=== PATIENT | female | born 1955 | race African-American/Black ===

== ENCOUNTER → 2017-12-20 | Outpatient (CLI) | payer SELFPAY ==
[~2017-12-20] MED LIST: CLON0.5T PO; IBUP-232 PO; LEVO75TA3 PO; METR0.7512 VAGINAL; TRIAM.1%T TOPICAL; ZOSTINJ SQ
--- NOTE | 2017-12-20 18:46 | RADRPT ---
EXAM DATE/TIME: 12/20/2017 18:26 [place] COMPARISON: No previous studies available for comparison. INDICATIONS : Right shoulder joint pain after flu shot. MEDICAL HISTORY : None. SURGICAL HISTORY : None. ENCOUNTER: Initial ACUITY: 2 months PAIN SCORE: 6/10 LOCATION: Right shoulder. FINDINGS: Multiple view examination of the right shoulder demonstrates no evidence of fracture or dislocation. The glenohumeral and acromioclavicular joints are maintained. There is normal range of motion betwe en internal and external rotation. Bony mineralization is normal. CONCLUSION: Unremarkable exam for patient's age. Joel Fuentes MD on December 20, 2017 at 18:43 Board Certified Radiologist. This report was verified electronically.
== END ==
LOC: HRAD 18:13
PROVIDERS: ATTEND Family Medicine
DX: M25.511 Pain in right shoulder (principal)
CPT/HCPCS: 73030